=== PATIENT | female | born 2000 | race Caucasian/White ===

== ENCOUNTER 2023-07-07 14:59 | Outpatient (CLI) | payer BC | END 2023-07-07 15:00 | disposition home or self-care (01) | LOC: SCSMRI 14:59 | PROVIDERS: ATTEND Orthopaedic Surgery | DX: M23.92 Unspecified internal derangement of left knee (principal); S82.142A Displaced bicondylar fracture of left tibia, initial encounter for closed fracture; M79.89 Other specified soft tissue disorders ==